=== PATIENT | female | born 1940 | race Caucasian/White ===

== ENCOUNTER 2017-09-02 10:53 | Outpatient (CLI) | payer MEDICARE ==
--- NOTE | 2017-09-02 11:35 | MMO ---
BILATERAL SCREENING MAMMOGRAM: DATE: 09/02/17 HISTORY: 76-year-old female for screening mammography. COMPARISON: 09/01/16, 07/05/15. FINDINGS: Bilateral MLO and CC views of the breasts show scattered fibroglandular breast tissue. Benign-appeari ng calcifications are seen in both breasts. There is no evidence of suspicious mass, suspicious clust er of microcalcifications, or area of architectural distortion. Interpretation of this mammogram was performed with the assistance of computer-aided detection. IMPRESSION: BIRADS 2: Benign Finding(s) Annual screening mammography is recommended. POS: [facility]
== END 2017-09-02 10:54 | disposition home or self-care (01) ==
LOC: SCSMAMMO 10:53
PROVIDERS: ATTEND Family Medicine
DX: Z12.31 Encounter for screening mammogram for malignant neoplasm of breast (principal)
CPT/HCPCS: 77067

== ENCOUNTER 2018-03-22 09:33 | Outpatient (CLI) | payer MEDICARE ==
--- NOTE | 2018-03-22 11:44 | CT ---
CT OF ABDOMEN AND PELVIS PERFORMED WITH AND WITHOUT CONTRAST ENHANCEMENT: History: Microhematuria. FINDINGS: The lung bases show chronic interstitial fibrotic lung change. There is a large hiatal hernia noted. The liver, spleen, pancreas, and gallbladder regions all appear unremarkable. Right and left adrenal glands are normal in appearance. There is a large somewhat oblong shaped parap elvic type cyst involving the left kidney. It measures 4.8 x 9 cm in size. There are no right sided r enal calculi present but there are two left sided renal calculi, both measuring in the 7-8 mm range. There is no significant periaortic or mesenteric adenopathy. 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 OF PELVIS PERFORMED WITH AND WITHOUT CONTRAST ENHANCEMENT: There is bladder wall thickening. There is tiny air density within the bladder which could be on the basis of some type of previous catheterization. No focal discrete lesion of the bladder is seen. Ther e is colonic diverticulosis, mainly related to the sigmoid colon. There is no pelvic lymphadenopathy or mass. IMPRESSION: 1. Large parapelvic cyst involving the left kidney. 2. Nonobstructing lower pole left renal calculi. 3. Bladder wall thickening. 4. Sigmoid diverticulosis. POS: [facility]
== END 2018-03-22 09:34 | disposition home or self-care (01) ==
LOC: SCSCT 09:33
PROVIDERS: ATTEND Urology
DX: N39.0 Urinary tract infection, site not specified (principal); R31.29 Other microscopic hematuria; N20.0 Calculus of kidney; N28.1 Cyst of kidney, acquired; N32.89 Other specified disorders of bladder; K57.30 Diverticulosis of large intestine without perforation or abscess without bleeding
CPT/HCPCS: 74178; 82565

== ENCOUNTER 2018-09-03 08:00 | Outpatient (CLI) | payer MEDICARE ==
--- NOTE | 2018-09-03 08:39 | MMO ---
Bilateral MAMMO Bilat Screen [facility]. CLINICAL HISTORY: Patient is 78 years old and is seen for screening. The patient has no family history of breast cancer. The patient has no personal history of cancer. VIEWS: The views performed were: bilateral craniocaudal with tomosynthesis and bilateral mediolateral oblique with tomosynthesis. FILMS COMPARED: The present examination has been compared to prior imaging studies performed at [facility] on 09/02/2017, and at [facility] on 07/05/2015 and 09/01/2016. MAMMOGRAM FINDINGS: There are scattered fibroglandular densities. There are stable benign appearing calcifications seen in both breasts. There are no suspicious masses, suspicious calcifications, or new areas of architectural distortion. IMPRESSION: THERE IS NO MAMMOGRAPHIC EVIDENCE OF MALIGNANCY. A ROUTINE FOLLOW-UP MAMMOGRAM IN 1 YEAR IS RECOMMENDED. THE RESULTS OF THIS EXAM WERE SENT TO THE PATIENT. ACR BI-RADS Category 2 - Benign finding MAMMOGRAPHY NOTE: 1. A negative mammogram report should not delay a biopsy if a dominant of clinically suspicious mass is present. 2. Approximately 10% to 15% of breast cancers are not detected by mammography. 3. Adenosis and dense breasts may obscure an underlying neoplasm. Reported by: KRIS DURBIN MD Electonically Signed: [id number]
== END 2018-09-03 08:01 | disposition home or self-care (01) ==
LOC: BICMAMMO 08:00
PROVIDERS: ATTEND Family Medicine
DX: Z12.31 Encounter for screening mammogram for malignant neoplasm of breast (principal)
CPT/HCPCS: 77063; 77067

== ENCOUNTER 2018-09-16 12:42 | Outpatient (CLI) | payer MEDICARE ==
--- NOTE | 2018-09-16 14:55 | RAD ---
SINGLE VIEW OF THE ABDOMEN: History: Calculus of the kidney. FINDINGS: Single view of the abdomen shows a nonspecific, nonobstructed bowel gas pattern. Phleboliths are seen in the pelvis. No obvious calcifications are seen projecting along either renal shadow or along the course of the ureters. IMPRESSION: No urinary calculi are identified. POS: [facility]
== END 2018-09-16 12:43 | disposition home or self-care (01) ==
LOC: RAD 12:42
PROVIDERS: ATTEND Urology
DX: N20.0 Calculus of kidney (principal)
CPT/HCPCS: 74018

== ENCOUNTER 2018-10-29 07:46 | Outpatient (CLI) | payer MEDICARE ==
--- NOTE | 2018-10-29 10:58 | BD ---
BONE DENSITOMETRY USING DEXA: Date: 10/29/18 HISTORY: Osteopenia. FINDINGS: Lumbar Spine: BMD (g/cm2) L1 0.926 T-Score: -0.6 Z-Score: 1.7 L2 1.069 T-Score: 0.4 Z-Score: 2.9 L3 1.030 T-Score: -0.5 Z-Score: 2.2 L4 1.068 T-Score: 0.1 Z-Score: 2.8 L1-L4 1.025 T-Score: -0.2 Z-Score: 2.4 Femoral Neck: 0.661 T-Score: -1.7 Z-Score: 0.5 Total Femur: 0.744 T-Score: -1.6 Z-Score: 0.4 10 YEAR FRACTURE RISK: Major osteoporotic fracture: 12% Hip fracture: 3% IMPRESSION: Calculated bone mineral density meets WHO criteria for osteopenia involving the left femoral neck and places the patient at increased risk for fracture. POS: [facility]
== END 2018-10-29 07:47 | disposition home or self-care (01) ==
LOC: BICMAMMO 07:46
PROVIDERS: ATTEND Family Medicine
DX: Z13.820 Encounter for screening for osteoporosis (principal); Z78.0 Asymptomatic menopausal state; M85.852 Other specified disorders of bone density and structure, left thigh
CPT/HCPCS: 77080

== ENCOUNTER 2019-09-05 08:08 | Outpatient (CLI) | payer MEDICARE ==
--- NOTE | 2019-09-05 08:40 | MMO ---
Bilateral MAMMO Bilat Screen [facility]. CLINICAL HISTORY: Patient is 79 years old and is seen for screening. The patient has no family history of breast cancer. The patient has no personal history of cancer. VIEWS: The views performed were: bilateral craniocaudal with tomosynthesis and bilateral mediolateral oblique with tomosynthesis. FILMS COMPARED: The present examination has been compared to prior imaging studies performed at [facility] on 09/02/2017, and at [facility] on 07/05/2015, 09/01/2016 and 09/03/2018. This study has been interpreted with the assistance of computer-aided detection. MAMMOGRAM FINDINGS: The breasts are heterogeneously dense, which could obscure a lesion on mammography. There are stable benign appearing calcifications seen in both breasts. There are no suspicious masses, suspicious calcifications, or new areas of architectural distortion. IMPRESSION: THERE IS NO MAMMOGRAPHIC EVIDENCE OF MALIGNANCY. A ROUTINE FOLLOW-UP MAMMOGRAM IN 1 YEAR IS RECOMMENDED. THE RESULTS OF THIS EXAM WERE SENT TO THE PATIENT. ACR BI-RADS Category 2 - Benign finding MAMMOGRAPHY NOTE: 1. A negative mammogram report should not delay a biopsy if a dominant of clinically suspicious mass is present. 2. Approximately 10% to 15% of breast cancers are not detected by mammography. 3. Adenosis and dense breasts may obscure an underlying neoplasm. Reported by: JOHAN KAY MD Electonically Signed: [id number]
== END 2019-09-05 08:09 | disposition home or self-care (01) ==
LOC: BICMAMMO 08:08
PROVIDERS: ATTEND Family Medicine
DX: Z12.31 Encounter for screening mammogram for malignant neoplasm of breast (principal)
CPT/HCPCS: 77063; 77067

== ENCOUNTER 2021-07-08 10:07 | Outpatient (CLI) | payer MEDICARE | END 2021-07-08 10:08 | disposition home or self-care (01) | LOC: SCSRAD 10:07 | PROVIDERS: ATTEND Family Medicine | DX: M25.651 Stiffness of right hip, not elsewhere classified (principal); M16.11 Unilateral primary osteoarthritis, right hip ==

== ENCOUNTER 2022-09-11 16:58 | Outpatient (CLI) | payer MEDICARE | END 2022-09-11 16:59 | disposition home or self-care (01) | LOC: SCSRAD 16:58 | PROVIDERS: ATTEND Nurse Practitioner Family | DX: M25.552 Pain in left hip (principal); M16.12 Unilateral primary osteoarthritis, left hip; S72.112A Displaced fracture of greater trochanter of left femur, initial encounter for closed fracture ==